=== PATIENT | female | born 1990 | race Caucasian/White ===

== ENCOUNTER 2017-06-17 02:53 | Emergency (ER) | payer MEDICAID ==
[~2017-06-17] VITALS: Ht 157.5 cm; Wt 61.2 kg
[2017-06-17 02:56] VITALS: BP 146/66
--- NOTE | 2017-06-17 03:07 | NUR ---
AMBULATED TO ER BED 6
--- NOTE | 2017-06-17 03:10 | NUR ---
S/P TAKING MARIJUANA 2 HOURS AGO, NOW WITH ABD PAIN, NAUSEA, HEADACHE , NOT FEELING GOOD, SHAKING , BACK PAIN 10/10, FEELING HOT, EYES HEAVY. PATIENT STATES PAIN OF 10/10 AT THIS TIME; VSS; PATIENT POSITIONED FOR COMFORT; HOB ELEVATED; BEDRAILS UP X2; BED DOWN. ER MD MADE AWARE OF PT STATUS.
[2017-06-17] MEDS ORDERED: LORazepam 1 MG TAB PO ONE (03:15)
[2017-06-17] MEDS ORDERED: NACL 0.9% 500 ML IV ONE (03:20)
[2017-06-17] MEDS ORDERED: LORazepam 2 MG/ML VIAL IVP ONE (03:20)
--- NOTE | 2017-06-17 03:30 | NUR ---
MOTHER AT BEDSIDE. NO SIGNS OF DISTRESS AT THIS TIME
[2017-06-17 03:51] LABS: BASOPHILS # (AUTO) 0.2 K/uL (0.00-0.22); BASOPHILS % (AUTO) 1.4 % (0.0-2.0); EOSINOPHILS # (AUTO) 0.2 K/uL (0-0.4); EOSINOPHILS % (AUTO) 1.8 % (0.0-4.0); HEMATOCRIT 46.9 % (36-48); HEMOGLOBIN 15.3 g/dL (12.0-16.0); LYMPHOCYTES # (AUTO) 0.6 K/uL (2.5-16.5); MEAN CORPUSCULAR HEMOGLOBIN 30 pg (27-31); MEAN CORPUSCULAR HGB CONC 33 g/dL (33-37); MEAN CORPUSCULAR VOLUME 91 fL (80-94); MONOCYTES # (AUTO) 0.4 K/uL (0.8-1.0); MONOCYTES % (AUTO) 3.8 % (1.7-9.3); PLATELET COUNT (AUTO) 232 K/uL (140-450); RED BLOOD CELL COUNT(AUTO) 5.13 MIL/uL (4.20-5.40); RED CELL DISTRIBUTION WIDTH 12.1 % (11.6-13.7); WHITE BLOOD COUNT (AUTO) 11.4 K/uL (4.8-10.8)
[2017-06-17 04:00] LABS: ANION GAP 20.2 (8-16); CALCIUM 9.6 mg/dL (8.5-10.1); CARBON DIOXIDE 20.4 mmol/L (21-32); CREATININE 0.9 mg/dL (0.6-1.3); POTASSIUM 3.6 mmol/L (3.5-5.1)
[2017-06-17 04:06] LABS: ALBUMIN 4.4 g/dL (3.4-5.0); TOTAL BILIRUBIN 0.4 mg/dL (0.0-1.0); TOTAL PROTEIN, SERUM 8.5 g/dL (6.4-8.2)
[2017-06-17] MEDS ORDERED: ONDANSETRON 4 MG/2 ML VIAL IVP ONE (04:30)
--- NOTE | 2017-06-17 06:34 | NUR ---
PT RESTING. NO SIGNS OF DISTRESS AT THIS TIME.
[2017-06-17 06:51] LABS: AMPHETAMINE, URINE NEG. ng/ml (NEG <=1000); BARBITURATE, URINE NEG. ng/ml (NEG <=200); BENZODIAZEPINE, URINE NEG. ng/mL (NEG <=200); CANNABINOID, URINE POS. ng/mL (NEG <=50); COCAINE, URINE NEG. ng/mL (NEG <=300); OPIATE, URINE NEG. ng/mL (NEG <=2000); PHENCYCLIDINE SCREEN,URINE NEG. ng/mL (NEG <=25)
--- NOTE | 2017-06-17 06:54 | NUR ---
PT ASLEEP AT THIS TIME.
--- NOTE | 2017-06-17 07:16 | NUR ---
REPORT GIVEN TO RUPERTO ATKINSON. PT ASLEEP. MOTHER AT BEDSIDE.
[2017-06-17 07:48] VITALS: BP 125/79
--- NOTE | 2017-06-17 07:48 | NUR ---
Patient discharged with v/s stable. Written and verbal after care instructions given and explained. Patient verbalized understanding. Ambulatory with by parent. All questions addressed prior to discharge. Advised to follow up with PMD.
== END 2017-06-17 07:48 | disposition home or self-care (01) ==
LOC: MED 02:53
DX: G92 Toxic encephalopathy (principal); T40.7X5A Adverse effect of cannabis (derivatives), initial encounter; Y92.89 Other specified places as the place of occurrence of the external cause; K21.9 Gastro-esophageal reflux disease without esophagitis
CPT/HCPCS: 36415; 80053; 80305; 82150; 83690; 85025; 96361; 96374; 96375; 99284; J2060; J2405; J7030; 81002; 81025